=== PATIENT | male | born 1965 | race Caucasian/White ===

== ENCOUNTER 2017-01-30 06:39 | Day surgery (SDC) | payer BC ==
[2017-01-23 13:55] VITALS: BMI 30.4
[2017-01-30 06:57] VITALS: TEMP 97.4
[2017-01-30] MEDS ORDERED: PROPOFOL 20 ML ONE ×2 (07:03)
[2017-01-30 10:15] VITALS: BP 127/82; PULSE 64
== END 2017-01-30 10:10 | disposition home or self-care (01) ==
LOC: FASU 06:39
PROVIDERS: ATTEND Internal Medicine Gastroenterology
PROC: 0DJD8ZZ Inspection of Lower Intestinal Tract, Via Natural or Artificial Opening Endoscopic (ICD-10-PCS; principal; 2017-01-30 09:14)
DX: Z12.11 Encounter for screening for malignant neoplasm of colon (principal)